=== PATIENT | female | born 1980 | race Caucasian/White ===

== ENCOUNTER 2020-04-30 01:34 | Emergency (ER) | payer BC, MEDICARE ==
[~2020-04-30] VITALS: Ht 162.6 cm; Wt 54.5 kg
[~2020-04-30 01:34] MED LIST: GABA-1216 PO; LEVO125T4 PO; METH-624 PO; OXYC20TA41 PO; TIZA4TAB12 PO
[2020-04-30] MEDS ORDERED: SODIUM CHLORIDE 0.9% 1,000 ML IV ONE ×2 (02:00→03:30)
[2020-04-30] MEDS ORDERED: DiphenhydrAMINE HCL 50 MG/ML VIAL IVP STA ×2 (02:00→03:22)
[2020-04-30] MEDS: KETOROLAC TROMETHAMINE 30 MG/ML VIAL IVP ONE ×2 (02:33→02:38)
[2020-04-30] MEDS ORDERED: MORPHINE SULFATE 4 MG/ML SYRINGE IVP ONE (02:45)
[2020-04-30 02:52] LABS: BASOPHILS % (AUTO) 0.8 % (0.0-2.0); EOSINOPHILS % (AUTO) 2.9 % (1.0-6.0); HEMATOCRIT 37.2 % (36-46); HEMOGLOBIN 13.1 g/dL (12.0-16.0); LYMPHOCYTES # (AUTO) 1.9 K/uL (1.0-4.8); LYMPHOCYTES % (AUTO) 26.7 % (22.0-44.0); MEAN CORPUSCULAR HEMOGLOBIN 31.9 pg (26.0-34.0); MEAN CORPUSCULAR HGB CONC 35.1 G/dL (31.0-37.0); MEAN CORPUSCULAR VOLUME 91 fL (80-100); MONOCYTES # (AUTO) 0.5 K/uL (0.1-1.0); MONOCYTES % (AUTO) 7.1 % (2.0-9.0); NEUTROPHILS # (AUTO) 4.4 K/uL (1.8-7.7); NEUTROPHILS % (AUTO) 62.5 % (40.0-70.0); PLATELET COUNT (AUTO) 356 K/uL (150-450); RED CELL DISTRIBUTION WIDTH 13.1 % (11.5-14.5)
[2020-04-30 03:14] LABS: LACTIC ACID 1.6 mmol/L (0.4-2.0)
[2020-04-30] MEDS ORDERED: PROMETHAZINE HCL 25 MG TABLET PO ONE (03:15)
[2020-04-30] MEDS ORDERED: HYDROmorphone 2 MG/ML SYRINGE IVP ONE (03:15)
[2020-04-30] MEDS ORDERED: SODIUM CHLORIDE 0.9% 100 ML ONE (03:22)
[2020-04-30] MEDS ORDERED: IOVERSOL 350 MG/ML 100 ML VIAL ONE (03:22)
[2020-04-30] MEDS ORDERED: MethylPREDNISolone SOD SUCC 125 MG/2 ML VIAL IVP ONE (03:30)
[2020-04-30] MEDS ORDERED: FAMOTIDINE 10 MG/ML 2 ML VIAL IVP ONE (03:30)
[2020-04-30 03:43] LABS: ALANINE AMINOTRANSFERASE 13 U/L (12-78); ALBUMIN 4.1 g/dL (3.4-5.0); ALKALINE PHOSPHATASE 79 U/L (46-116); ANION GAP 9 mmol/L (8-16); ASPARTATE AMINOTRANSFERASE 13 U/L (15-37); BILIRUBIN,TOTAL 0.4 mg/dL (0.1-1.0); CALCIUM, TOTAL 8.8 mg/dL (8.8-10.5); CARBON DIOXIDE 27 mmol/L (22-29); CHLORIDE 101 mmol/L (98-107); CREATININE 0.99 mg/dL (0.60-1.30); GLOMERULAR FILTR. RATE CALC > 60 mL/min (>60); GLUCOSE,RANDOM 104 mg/dL (70-110); LIPASE 105 U/L (73-393); POTASSIUM 3.6 mmol/L (3.5-5.1); SODIUM SERUM 137 mmol/L (136-145); TOTAL PROTEIN, SERUM 7.7 g/dL (6.4-8.2)
[2020-04-30 03:50] LABS: UREA NITROGEN, BLOOD 13 mg/dL (7-18)
[2020-04-30 05:30] VITALS: BP 101/85
== END 2020-04-30 06:49 | disposition home or self-care (01) ==
LOC: EMS 01:35
DX: K59.00 Constipation, unspecified (principal); R10.11 Right upper quadrant pain; Z88.0 Allergy status to penicillin; Z88.2 Allergy status to sulfonamides; Z88.6 Allergy status to analgesic agent
CPT/HCPCS: 74176; 76705; 80053; 83605; 83690; 85025; 96361; 96374; 96375; 99285; J1170; J1200; J1885; J2270; J3490; J7030; J7050; Q9967; J2930

== ENCOUNTER 2022-05-31 02:04 | Inpatient (IN) | payer BC, MEDICARE ==
[~2022-05-31] VITALS: Ht 162.6 cm; Wt 72.0 kg
[2022-05-31] MEDS ORDERED: METH2.5 PO (02:16)
[2022-05-31] MEDS ORDERED: TIZA-211 PO (02:16)
[2022-05-31] MEDS ORDERED: PROM-163 PO (02:17)
[2022-05-31] MEDS ORDERED: PRED-549 PO (02:19)
[2022-05-31] MEDS ORDERED: HYDR200T38 PO (02:19)
[2022-05-31] MEDS ORDERED: ZOLP10TA8 PO (02:19)
[2022-05-31] MEDS ORDERED: [UNRECOGNIZED DRUG - CODE] OU (02:21)
[2022-05-31] MEDS ORDERED: MORPHINE SULFATE 2 MG/ML SYRINGE IVP ONE ×2 (02:45→06:00)
[2022-05-31] MEDS ORDERED: DiphenhydrAMINE HCL 50 MG/ML VIAL IVP ONE ×2 (02:45→06:00)
[2022-05-31] MEDS ORDERED: SODIUM CHLORIDE 0.9% 1,000 ML IV ONE ×2 (02:45→05:00)
[2022-05-31 02:56] LABS: BASOPHILS % (AUTO) 0.5 % (0.0-2.0); EOSINOPHILS % (AUTO) 3.9 % (1.0-6.0); HEMATOCRIT 35.7 % (36-46); HEMOGLOBIN 12.2 g/dL (12.0-16.0); LYMPHOCYTES # (AUTO) 1.7 K/uL (1.0-4.8); LYMPHOCYTES % (AUTO) 26.1 % (22.0-44.0); MEAN CORPUSCULAR HEMOGLOBIN 30.9 pg (26.0-34.0); MEAN CORPUSCULAR HGB CONC 34.2 G/dL (31.0-37.0); MEAN CORPUSCULAR VOLUME 90 fL (80-100); MONOCYTES # (AUTO) 0.3 K/uL (0.1-1.0); MONOCYTES % (AUTO) 5.1 % (2.0-9.0); NEUTROPHILS # (AUTO) 4.2 K/uL (1.8-7.7); NEUTROPHILS % (AUTO) 64.4 % (40.0-70.0); PLATELET COUNT (AUTO) 359 K/uL (150-450); RED BLOOD CELL COUNT(AUTO) 3.96 MIL/uL (4.00-5.20); RED CELL DISTRIBUTION WIDTH 14.7 % (11.5-14.5)
[2022-05-31 03:29] LABS: ALANINE AMINOTRANSFERASE 13 U/L (12-78); ALBUMIN 4.4 g/dL (3.4-5.0); ALKALINE PHOSPHATASE 78 U/L (46-116); ANION GAP 16 mmol/L (8-16); ASPARTATE AMINOTRANSFERASE 20 U/L (15-37); BILIRUBIN,TOTAL 0.3 mg/dL (0.1-1.0); CALCIUM, TOTAL 8.8 mg/dL (8.8-10.5); CARBON DIOXIDE 21 mmol/L (22-29); CHLORIDE 102 mmol/L (98-107); CREATININE 1.69 mg/dL (0.60-1.30); GLOMERULAR FILTR. RATE CALC 34 mL/min (>60); GLUCOSE,RANDOM 236 mg/dL (70-110); HCG,QUANTITATIVE < 1 mIU/mL (0-6); LIPASE 62 U/L (73-393); PHOSPHORUS 2.9 mg/dL (2.5-4.9); SODIUM SERUM 139 mmol/L (136-145); TOTAL PROTEIN, SERUM 7.4 g/dL (6.4-8.2); UREA NITROGEN, BLOOD 13 mg/dL (7-18)
[2022-05-31 03:33] LABS: POTASSIUM 2.5 mmol/L (3.5-5.1)
[2022-05-31 03:43] LABS: COVID AG,FIA SOURCE NASOPHARYNGEAL
[2022-05-31] MEDS ORDERED: POTASSIUM CHLORIDE 20 MEQ ER TABLET PO PRN ×2 (03:45→18:00)
[2022-05-31] MEDS ORDERED: LORazepam 2 MG/ML VIAL IVP ONE ×2 (04:00→06:00)
[2022-05-31] MEDS ORDERED: MAGNESIUM SULFATE 2 GM/WATER 50 ML IV ONE (04:00)
[2022-05-31 04:30] LABS: INFLUENZA TYPE A NEGATIVE FOR TYPE A (NEGATIVE); INFLUENZA TYPE B NEGATIVE FOR TYPE B (NEGATIVE)
[2022-05-31] MEDS: POTASSIUM CHL 10 MEQ/WATER 50 ML IV PRN ×3 (04:53→08:25)
[2022-05-31] MEDS ORDERED: 0.9% SODIUM CHLORIDE 10 ML SYRINGE IVP PRN (05:30)
[2022-05-31] MEDS ORDERED: ACETAMINOPHEN 325 MG TABLET PO PRN ×2 (05:30→08:45)
[2022-05-31 07:15] LABS: APPEARANCE,URINE HAZY (CLEAR); BILIRUBIN,URINE NEGATIVE (NEGATIVE); GLUCOSE, URINE (UA) 150-200 mg/dL (NEGATIVE); LEUKOCYTE ESTERASE ,URINE TRACE (NEGATIVE); NITRATE,URINE NEGATIVE (NEGATIVE); OCCULT BLOOD,URINE NEGATIVE (NEGATIVE); PROTEIN,URINE TRACE mg/dL (NEGATIVE); UROBILINOGEN,URINE <=1.0 mg/dL (<=1.0)
[2022-05-31 07:20] LABS: AMPHET/METH SCREEN,URINE NEGATIVE (NEGATIVE); BARBITURATE SCREEN, URINE NEGATIVE (NEGATIVE); BENZODIAZEPINES SCREEN,URINE NEGATIVE (NEGATIVE); CANNABINOID SCREEN,URINE NEGATIVE (NEGATIVE); COCAINE SCREEN,URINE NEGATIVE (NEGATIVE); METHADONE SCREEN, URINE NEGATIVE (NEGATIVE); OPIATE SCREEN,URINE POSITIVE (NEGATIVE); PHENCYCLIDINE SCREEN,URINE NEGATIVE (NEGATIVE)
[2022-05-31 07:32] LABS: BACTERIA,URINE Few /HPF (None Seen); RBC,URINE None Seen /HPF (0-2); SQUAMOUS EPITHELIAL CELL,UR Few /LPF (None Seen)
[2022-05-31] MEDS ORDERED: DEXTROSE 50%-WATER 25 GM/50 ML SYRINGE IVP PRN (08:30)
[2022-05-31] MEDS ORDERED: INSULIN LISPRO 100 UNITS/ML SQ PRN (08:30)
[2022-05-31] MEDS ORDERED: LORazepam 1 MG TABLET PO PRN (08:30)
[2022-05-31] MEDS ORDERED: MAGNESIUM HYDROXIDE SUSPENSION 30 ML UDCUP PO PRN (08:45)
[2022-05-31] MEDS ORDERED: PROMETHAZINE HCL 25 MG RECTAL SUPPOSITORY PR PRN (08:45)
[2022-05-31] MEDS: PANTOPRAZOLE SODIUM 40 MG/VIAL IVP SCH (13:06)
[2022-05-31] MEDS: HYDROmorphone HCL 2 MG/ML SYRINGE IVP PRN ×2 (13:07→19:23)
[2022-05-31] MEDS: DiphenhydrAMINE HCL 50 MG/ML VIAL IVP PRN ×2 (13:32→21:34)
[2022-05-31] MEDS: HEPARIN SODIUM,PORCINE 5,000 UNITS/ML VIAL SQ SCH ×2 (16:00→23:30)
[2022-05-31] MEDS: MethylPREDNISolone SOD SUCC 40 MG/ML VIAL IVP SCH ×2 (17:43→23:30)
[2022-05-31] MEDS ORDERED: POTASSIUM CHL 10 MEQ/WATER 50 ML IV PRN (18:00)
[2022-05-31] MEDS: LORazepam 2 MG/ML VIAL IVP PRN (19:23)
[2022-05-31 21:08] VITALS: BP 140/94
[2022-05-31] MEDS: SODIUM CHLORIDE 0.9% 1,000 ML IV SCH (23:30)
[2022-05-31 23:31] VITALS: BP 140/89
[2022-06-01] MEDS: LORazepam 2 MG/ML VIAL IVP PRN ×4 (01:36→22:16)
[2022-06-01] MEDS: HYDROmorphone HCL 2 MG/ML SYRINGE IVP PRN ×4 (01:37→21:22)
[2022-06-01 03:38] VITALS: BP 142/97
[2022-06-01] MEDS: DiphenhydrAMINE HCL 50 MG/ML VIAL IVP PRN ×3 (05:33→22:16)
[2022-06-01 07:25] LABS: BASOPHILS % (AUTO) 0.3 % (0.0-2.0); EOSINOPHILS % (AUTO) 0.1 % (1.0-6.0); HEMATOCRIT 34.4 % (36-46); HEMOGLOBIN 11.7 g/dL (12.0-16.0); LYMPHOCYTES # (AUTO) 0.8 K/uL (1.0-4.8); LYMPHOCYTES % (AUTO) 19.4 % (22.0-44.0); MEAN CORPUSCULAR HEMOGLOBIN 30.6 pg (26.0-34.0); MEAN CORPUSCULAR HGB CONC 34.1 G/dL (31.0-37.0); MEAN CORPUSCULAR VOLUME 90 fL (80-100); MONOCYTES # (AUTO) 0.1 K/uL (0.1-1.0); MONOCYTES % (AUTO) 3.5 % (2.0-9.0); NEUTROPHILS % (AUTO) 76.7 % (40.0-70.0); PLATELET COUNT (AUTO) 423 K/uL (150-450); RED BLOOD CELL COUNT(AUTO) 3.82 MIL/uL (4.00-5.20); RED CELL DISTRIBUTION WIDTH 14.3 % (11.5-14.5)
[2022-06-01 07:53] LABS: ALANINE AMINOTRANSFERASE 12 U/L (12-78); ALBUMIN 3.6 g/dL (3.4-5.0); ALKALINE PHOSPHATASE 75 U/L (46-116); ANION GAP 8 mmol/L (8-16); ASPARTATE AMINOTRANSFERASE 20 U/L (15-37); BILIRUBIN,TOTAL 0.3 mg/dL (0.1-1.0); CALCIUM, TOTAL 8.3 mg/dL (8.8-10.5); CARBON DIOXIDE 26 mmol/L (22-29); CHLORIDE 103 mmol/L (98-107); CREATININE 0.77 mg/dL (0.60-1.30); GLOMERULAR FILTR. RATE CALC > 60 mL/min (>60); GLUCOSE,RANDOM 129 mg/dL (70-110); POTASSIUM 4.1 mmol/L (3.5-5.1); SODIUM SERUM 137 mmol/L (136-145); TOTAL PROTEIN, SERUM 6.5 g/dL (6.4-8.2); UREA NITROGEN, BLOOD 7 mg/dL (7-18)
[2022-06-01 07:59] VITALS: BP 168/100
[2022-06-01] MEDS: MethylPREDNISolone SOD SUCC 40 MG/ML VIAL IVP SCH (08:30)
[2022-06-01] MEDS: PANTOPRAZOLE SODIUM 40 MG/VIAL IVP SCH (08:31)
[2022-06-01] MEDS: HEPARIN SODIUM,PORCINE 5,000 UNITS/ML VIAL SQ SCH ×3 (08:31→23:40)
[2022-06-01] MEDS ORDERED: HYDROmorphone HCL 2 MG/ML SYRINGE IVP PRN (10:03)
[2022-06-01] MEDS ORDERED: OxyCODONE HCL 10 MG IR TABLET PO PRN (10:15)
[2022-06-01 11:49] VITALS: BP 173/107
[2022-06-01] MEDS: SODIUM CHLORIDE 0.9% 1,000 ML IV SCH (13:21)
[2022-06-01] MEDS ORDERED: ALBU8HFA IH (14:54)
[2022-06-01] MEDS ORDERED: GABA-1201 PO (14:54)
[2022-06-01] MEDS ORDERED: OXYC30TA2 PO (14:54)
[2022-06-01] MEDS ORDERED: PROM25SU10 PR (14:56)
[2022-06-01 16:12] VITALS: BP 148/98
[2022-06-01 19:57] LABS: HEMOGLOBIN A1C 5.3 % (3.8-5.6)
[2022-06-01 20:00] VITALS: BP 136/86
[2022-06-02] VITALS: BP 157/108
[2022-06-02 02:26] LABS: GLUCOMETER DEV NAME(LOC) 5S.2B; GLUCOSE,POINT OF CARE 169 MG/DL (70-110)
[2022-06-02 02:27] LABS: GLUCOMETER DEV NAME(LOC) 5N.1C; GLUCOSE,POINT OF CARE 127 MG/DL (70-110)
[2022-06-02 02:27] LABS: GLUCOMETER DEV NAME(LOC) 5S.2B; GLUCOSE,POINT OF CARE 134 MG/DL (70-110)
[2022-06-02] MEDS: SODIUM CHLORIDE 0.9% 1,000 ML IV SCH ×2 (03:39→17:05)
[2022-06-02 04:00] VITALS: BP 174/108
[2022-06-02] MEDS ORDERED: AmLODIPine BESYLATE 10 MG TABLET PO ONE (04:15)
[2022-06-02 07:48] VITALS: BP 147/97
[2022-06-02] MEDS: HEPARIN SODIUM,PORCINE 5,000 UNITS/ML VIAL SQ SCH ×3 (08:04→23:18)
[2022-06-02] MEDS: PANTOPRAZOLE SODIUM 40 MG/VIAL IVP SCH (08:04)
[2022-06-02] MEDS: DiphenhydrAMINE HCL 50 MG/ML VIAL IVP PRN ×3 (08:05→20:30)
[2022-06-02] MEDS: HYDROmorphone HCL 2 MG/ML SYRINGE IVP PRN ×3 (08:06→21:21)
[2022-06-02] MEDS: LORazepam 2 MG/ML VIAL IVP PRN ×2 (13:37→23:32)
[2022-06-02 19:52] LABS: GLUCOMETER DEV NAME(LOC) 5S.1B; GLUCOSE,POINT OF CARE 115 MG/DL (70-110)
[2022-06-02 20:31] VITALS: BP 123/85
[2022-06-03 00:22] VITALS: BP 133/90
[2022-06-03] MEDS: DiphenhydrAMINE HCL 50 MG/ML VIAL IVP PRN ×4 (03:36→21:53)
[2022-06-03] MEDS: HYDROmorphone HCL 2 MG/ML SYRINGE IVP PRN ×5 (04:24→22:52)
[2022-06-03 04:38] VITALS: BP 154/94
[2022-06-03] MEDS: LORazepam 2 MG/ML VIAL IVP PRN ×2 (06:05→17:59)
[2022-06-03] MEDS ORDERED: LEVOTHYROXINE SODIUM 25 MCG TABLET PO SCH (06:30)
[2022-06-03 07:25] LABS: BASOPHILS % (AUTO) 0.7 % (0.0-2.0); EOSINOPHILS % (AUTO) 4.9 % (1.0-6.0); HEMATOCRIT 30.6 % (36-46); HEMOGLOBIN 10.6 g/dL (12.0-16.0); LYMPHOCYTES # (AUTO) 1.9 K/uL (1.0-4.8); LYMPHOCYTES % (AUTO) 35.9 % (22.0-44.0); MEAN CORPUSCULAR HEMOGLOBIN 30.8 pg (26.0-34.0); MEAN CORPUSCULAR HGB CONC 34.6 G/dL (31.0-37.0); MEAN CORPUSCULAR VOLUME 89 fL (80-100); MONOCYTES # (AUTO) 0.3 K/uL (0.1-1.0); MONOCYTES % (AUTO) 6.7 % (2.0-9.0); NEUTROPHILS # (AUTO) 2.7 K/uL (1.8-7.7); NEUTROPHILS % (AUTO) 51.8 % (40.0-70.0); PLATELET COUNT (AUTO) 299 K/uL (150-450); RED BLOOD CELL COUNT(AUTO) 3.44 MIL/uL (4.00-5.20); RED CELL DISTRIBUTION WIDTH 14.4 % (11.5-14.5)
[2022-06-03 07:29] VITALS: BP 146/77
[2022-06-03 07:42] LABS: ANION GAP 10 mmol/L (8-16); CALCIUM, TOTAL 8.4 mg/dL (8.8-10.5); CARBON DIOXIDE 27 mmol/L (22-29); CHLORIDE 102 mmol/L (98-107); CREATININE 0.91 mg/dL (0.60-1.30); GLOMERULAR FILTR. RATE CALC > 60 mL/min (>60); GLUCOSE,RANDOM 89 mg/dL (70-110); SODIUM SERUM 139 mmol/L (136-145); UREA NITROGEN, BLOOD 6 mg/dL (7-18)
[2022-06-03] MEDS: HEPARIN SODIUM,PORCINE 5,000 UNITS/ML VIAL SQ SCH ×2 (09:25→15:36)
[2022-06-03] MEDS: PANTOPRAZOLE SODIUM 40 MG/VIAL IVP SCH (09:25)
[2022-06-03] MEDS: SODIUM CHLORIDE 0.9% 1,000 ML IV SCH ×2 (09:25→22:49)
[2022-06-03 11:24] VITALS: BP 145/96
[2022-06-03] MEDS ORDERED: MAGNESIUM SULFATE 4 GM/WATER 100 ML IV PRN (12:45)
[2022-06-03] MEDS ORDERED: POTASSIUM CHLORIDE 20 MEQ ER TABLET PO PRN (12:45)
[2022-06-03] MEDS ORDERED: MAGNESIUM SULFATE 2 GM/WATER 50 ML IV PRN (12:45)
[2022-06-03] MEDS ORDERED: MAGNESIUM OXIDE 400 MG TABLET PO PRN (12:45)
[2022-06-03 13:12] LABS: ALBUMIN 3.6 g/dL (3.4-5.0)
[2022-06-03] MEDS: POTASSIUM CHL 10 MEQ/WATER 50 ML IV PRN ×4 (14:35→18:51)
[2022-06-03 15:17] VITALS: BP 134/95
[2022-06-03 20:18] VITALS: BP 145/100
[2022-06-04 00:11] VITALS: BP 145/102
[2022-06-04] MEDS: LORazepam 2 MG/ML VIAL IVP PRN ×5 (00:13→23:20)
[2022-06-04] MEDS: HEPARIN SODIUM,PORCINE 5,000 UNITS/ML VIAL SQ SCH ×5 (00:13→23:56)
[2022-06-04] MEDS: POTASSIUM CHL 10 MEQ/WATER 50 ML IV PRN ×3 (00:14→02:30)
[2022-06-04] MEDS: HYDROmorphone HCL 2 MG/ML SYRINGE IVP PRN ×5 (02:53→20:40)
[2022-06-04] MEDS: DiphenhydrAMINE HCL 50 MG/ML VIAL IVP PRN ×4 (03:53→23:20)
[2022-06-04 05:22] VITALS: BP 119/78
[2022-06-04 07:28] LABS: MAGNESIUM 2.3 mg/dL (1.80-2.40)
[2022-06-04 07:45] VITALS: BP 116/89
[2022-06-04 09:36] LABS: POTASSIUM 3.9 mmol/L (3.5-5.1)
[2022-06-04] MEDS: PANTOPRAZOLE SODIUM 40 MG/VIAL IVP SCH (10:23)
[2022-06-04] MEDS: LEVOTHYROXINE SODIUM 100 MCG VIAL IVP SCH (10:24)
[2022-06-04] MEDS: SODIUM CHLORIDE 0.9% 1,000 ML IV SCH (11:14)
[2022-06-04] MEDS ORDERED: LEVO-72 PO (11:40)
[2022-06-04 11:41] VITALS: BP 124/88
[2022-06-04] MEDS ORDERED: PRED5SOL PO (11:41)
[2022-06-04 16:31] VITALS: BP 136/90
[2022-06-05 00:18] VITALS: BP 140/109
[2022-06-05] MEDS: HYDROmorphone HCL 2 MG/ML SYRINGE IVP PRN ×6 (00:47→21:37)
[2022-06-05 05:02] VITALS: BP 161/123
[2022-06-05] MEDS: DiphenhydrAMINE HCL 50 MG/ML VIAL IVP PRN ×2 (05:37→11:39)
[2022-06-05] MEDS: LORazepam 2 MG/ML VIAL IVP PRN ×3 (06:22→21:38)
[2022-06-05 07:18] VITALS: BP 130/92
[2022-06-05] MEDS: HEPARIN SODIUM,PORCINE 5,000 UNITS/ML VIAL SQ SCH ×3 (08:00→15:12)
[2022-06-05] MEDS: LEVOTHYROXINE SODIUM 100 MCG VIAL IVP SCH (09:13)
[2022-06-05] MEDS: PANTOPRAZOLE SODIUM 40 MG/VIAL IVP SCH (09:14)
[2022-06-05] MEDS ORDERED: LEVO200 PO ×2 (10:41→10:47)
[2022-06-05] MEDS ORDERED: PROM25SU10 PR (10:47)
[2022-06-05] MEDS ORDERED: OXYC10TA92 PO ×3 (10:47→11:09)
[2022-06-05] MEDS ORDERED: PROM-163 PO (10:47)
[2022-06-05 11:36] LABS: BASOPHILS % (AUTO) 0.8 % (0.0-2.0); EOSINOPHILS % (AUTO) 7.7 % (1.0-6.0); HEMATOCRIT 38.6 % (36-46); HEMOGLOBIN 13.1 g/dL (12.0-16.0); LYMPHOCYTES # (AUTO) 1.8 K/uL (1.0-4.8); LYMPHOCYTES % (AUTO) 37.2 % (22.0-44.0); MEAN CORPUSCULAR HEMOGLOBIN 30.1 pg (26.0-34.0); MEAN CORPUSCULAR HGB CONC 33.9 G/dL (31.0-37.0); MEAN CORPUSCULAR VOLUME 89 fL (80-100); MONOCYTES # (AUTO) 0.3 K/uL (0.1-1.0); MONOCYTES % (AUTO) 6.5 % (2.0-9.0); NEUTROPHILS # (AUTO) 2.3 K/uL (1.8-7.7); NEUTROPHILS % (AUTO) 47.8 % (40.0-70.0); PLATELET COUNT (AUTO) 341 K/uL (150-450); RED BLOOD CELL COUNT(AUTO) 4.34 MIL/uL (4.00-5.20); RED CELL DISTRIBUTION WIDTH 14.3 % (11.5-14.5)
[2022-06-05 12:11] LABS: ALANINE AMINOTRANSFERASE 14 U/L (12-78); ALBUMIN 3.9 g/dL (3.4-5.0); ALKALINE PHOSPHATASE 72 U/L (46-116); ANION GAP 13 mmol/L (8-16); ASPARTATE AMINOTRANSFERASE 20 U/L (15-37); BILIRUBIN,TOTAL 0.5 mg/dL (0.1-1.0); CARBON DIOXIDE 24 mmol/L (22-29); CHLORIDE 107 mmol/L (98-107); CREATININE 0.74 mg/dL (0.60-1.30); GLOMERULAR FILTR. RATE CALC > 60 mL/min (>60); GLUCOSE,RANDOM 85 mg/dL (70-110); SODIUM SERUM 144 mmol/L (136-145); TOTAL PROTEIN, SERUM 6.6 g/dL (6.4-8.2); UREA NITROGEN, BLOOD 6 mg/dL (7-18)
[2022-06-05 12:17] LABS: POTASSIUM 2.6 mmol/L (3.5-5.1)
[2022-06-05 12:19] VITALS: BP 150/101
[2022-06-05] MEDS: POTASSIUM CHL 10 MEQ/WATER 50 ML IV PRN ×4 (12:36→18:36)
[2022-06-05] MEDS: SODIUM CHLORIDE 0.9% 1,000 ML IV SCH (12:36)
[2022-06-05] MEDS ORDERED: POTASSIUM CHLORIDE 20 MEQ ER TABLET PO ONE (13:00)
[2022-06-05] MEDS: HydrALAZINE HCL 20 MG/ML VIAL IVP PRN (15:19)
[2022-06-05 15:50] VITALS: BP 163/118
[2022-06-05] MEDS ORDERED: DiphenhydrAMINE HCL 50 MG/ML VIAL IVP PRN (16:00)
[2022-06-05 17:22] LABS: PHOSPHORUS 2.8 mg/dL (2.5-4.9); POTASSIUM 3.2 mmol/L (3.5-5.1)
[2022-06-05 20:28] VITALS: BP 154/113
[2022-06-06] MEDS ORDERED: ACETAMINOPHEN 650 MG/ISO-OSM 65 ML IV ONE
[2022-06-06] MEDS ORDERED: HALOPERIDOL LACTATE 5 MG/ML VIAL IM ONE
[2022-06-06 00:49] VITALS: BP 151/106
[2022-06-06] MEDS: HYDROmorphone HCL 2 MG/ML SYRINGE IVP PRN ×3 (01:41→09:46)
[2022-06-06] MEDS: LORazepam 2 MG/ML VIAL IVP PRN ×2 (03:42→10:02)
[2022-06-06 05:25] VITALS: BP 161/109
[2022-06-06] MEDS: HydrALAZINE HCL 20 MG/ML VIAL IVP PRN (05:41)
[2022-06-06 07:37] VITALS: BP 161/73
[2022-06-06] MEDS: HEPARIN SODIUM,PORCINE 5,000 UNITS/ML VIAL SQ SCH ×2 (08:00)
[2022-06-06] MEDS: PANTOPRAZOLE SODIUM 40 MG/VIAL IVP SCH (08:15)
[2022-06-06] MEDS: SODIUM CHLORIDE 0.9% 1,000 ML IV SCH (08:16)
[2022-06-06] MEDS: LEVOTHYROXINE SODIUM 100 MCG VIAL IVP SCH (08:16)
[2022-06-06] MEDS ORDERED: METH4TAB3 PO (10:22)
[2022-06-06 11:39] VITALS: BP 146/96
== END 2022-06-06 10:50 | disposition home or self-care (01) | DRG 546 ==
LOC: EMS 02:06 → AHU 09:04 → 5S 18:36
PROVIDERS: ADMIT Internal Medicine; ATTEND Internal Medicine
PROC: 02HV33Z Insertion of Infusion Device into Superior Vena Cava, Percutaneous Approach (ICD-10-PCS; principal; 2022-05-31)
PROC: B548ZZA Ultrasonography of Superior Vena Cava, Guidance (ICD-10-PCS; 2022-05-31)
DX: M32.9 Systemic lupus erythematosus, unspecified (principal); F11.20 Opioid dependence, uncomplicated; N17.9 Acute kidney failure, unspecified; E87.6 Hypokalemia; K52.9 Noninfective gastroenteritis and colitis, unspecified; M06.9 Rheumatoid arthritis, unspecified; G89.4 Chronic pain syndrome; M35.00 Sjogren syndrome, unspecified; E83.42 Hypomagnesemia; E89.0 Postprocedural hypothyroidism; Z20.822 Contact with and (suspected) exposure to COVID-19; R00.1 Bradycardia, unspecified; Z88.0 Allergy status to penicillin; Z88.2 Allergy status to sulfonamides; Z88.8 Allergy status to other drugs, medicaments and biological substances; Z79.899 Other long term (current) drug therapy; Z90.710 Acquired absence of both cervix and uterus
CPT/HCPCS: 71045; 80048; 80053; 80307; 81001; 82040; 82962; 83036; 83690; 83735; 84100; 84132; 84443; 84484; 84702; 85025; 85651; 87804; 93005; 93306; 99291; C9113; G0480; J0131; J0360; J1170; J1200; J1630; J1644; J2060; J2270; J2920; J3475; J3480; J3490; J7030; 36415-L1; 36415-TC

== ENCOUNTER 2022-09-03 18:05 | Emergency (ER) | payer BC ==
[~2022-09-03] VITALS: Ht 154.9 cm; Wt 68.2 kg
[~2022-09-03 18:05] MED LIST changes: -GABA-1216 PO; -LEVO125T4 PO; +LEVO200 PO; -METH-624 PO; +METH4TAB3 PO; +OXYC10TA92 PO; -OXYC20TA41 PO; +PROM-163 PO; +PROM25SU10 PR; -TIZA4TAB12 PO
[2022-09-03] MEDS ORDERED: TIZA-211 PO (18:14)
[2022-09-03] MEDS ORDERED: ZOLP10TA8 PO (18:14)
[2022-09-03] MEDS ORDERED: SERT-439 PO (18:14)
[2022-09-03] MEDS ORDERED: ALBU18HF12 PO (18:14)
[2022-09-03] MEDS ORDERED: GABA600T10 PO (18:14)
[2022-09-03] MEDS ORDERED: METH2.5T6 PO (18:14)
[2022-09-03] MEDS ORDERED: MethylPREDNISolone SOD SUCC 125 MG/2 ML VIAL IVP ONE (19:45)
[2022-09-03] MEDS ORDERED: LORazepam 2 MG/ML VIAL IVP ONE (19:45)
[2022-09-03] MEDS ORDERED: PROMETHAZINE HCL 25 MG TABLET PO ONE ×2 (19:45→22:30)
[2022-09-03] MEDS ORDERED: SODIUM CHLORIDE 0.9% 1,000 ML IV ONE (19:45)
[2022-09-03] MEDS ORDERED: DiphenhydrAMINE HCL 50 MG/ML VIAL IVP ONE (19:45)
[2022-09-03 20:41] LABS: APPEARANCE,URINE CLEAR (CLEAR); BILIRUBIN,URINE NEGATIVE (NEGATIVE); GLUCOSE, URINE (UA) NEGATIVE (NEGATIVE); KETONES,URINE NEGATIVE (NEGATIVE); LEUKOCYTE ESTERASE ,URINE NEGATIVE (NEGATIVE); NITRATE,URINE NEGATIVE (NEGATIVE); OCCULT BLOOD,URINE NEGATIVE (NEGATIVE); PH,URINE 5.5 (5.0-8.0); PROTEIN,URINE 30-70 mg/dL (NEGATIVE); SPECIFIC GRAVITIY, URINE 1.033 (1.003-1.030); UROBILINOGEN,URINE <=1.0 mg/dL (<=1.0)
[2022-09-03 21:03] LABS: AMPHET/METH SCREEN,URINE NEGATIVE (NEGATIVE); BARBITURATE SCREEN, URINE NEGATIVE (NEGATIVE); BENZODIAZEPINES SCREEN,URINE NEGATIVE (NEGATIVE); CANNABINOID SCREEN,URINE NEGATIVE (NEGATIVE); COCAINE SCREEN,URINE NEGATIVE (NEGATIVE); METHADONE SCREEN, URINE NEGATIVE (NEGATIVE); OPIATE SCREEN,URINE POSITIVE (NEGATIVE); PHENCYCLIDINE SCREEN,URINE NEGATIVE (NEGATIVE)
[2022-09-03] MEDS ORDERED: LORazepam 2 MG TABLET PO ONE (22:15)
[2022-09-03] MEDS ORDERED: DiphenhydrAMINE HCL 25 MG CAPSULE PO ONE (22:15)
[2022-09-03] MEDS ORDERED: DiphenhydrAMINE HCL 50 MG/ML VIAL IM ONE (22:30)
[2022-09-04] MEDS ORDERED: OxyCODONE HCL 10 MG ER TABLET PO ONE
[2022-09-04 03:38] VITALS: BP 108/72
== END 2022-09-04 03:42 | disposition home or self-care (01) ==
LOC: EMS 18:08
DX: R11.2 Nausea with vomiting, unspecified (principal); M79.10 Myalgia, unspecified site; M32.9 Systemic lupus erythematosus, unspecified; E03.9 Hypothyroidism, unspecified; N80.9 Endometriosis, unspecified; Z90.710 Acquired absence of both cervix and uterus; Z98.890 Other specified postprocedural states; Z90.89 Acquired absence of other organs; Z88.0 Allergy status to penicillin; Z88.2 Allergy status to sulfonamides; Z88.8 Allergy status to other drugs, medicaments and biological substances
CPT/HCPCS: 99285; 93005; 96372; 81003; 80307 ×2; J1200; J7030; J2930